=== PATIENT | male | born 1955 | race Caucasian/White ===

== ENCOUNTER 2018-05-31 11:20 | Inpatient (IN) | payer BC ==
[2018-05-31] MEDS ORDERED: NITROGLYCERIN SL TABS 0.4 MG TAB SUBLINGUAL STA (11:36)
[2018-05-31] MEDS ORDERED: ASPIRIN 81 MG PO STA (11:36)
[2018-05-31] MEDS ORDERED: DILTIAZEM DRIP BOLUS FROM BAG 1 MG SOLN IV ONE (11:50)
[2018-05-31] MEDS ORDERED: HEPARIN SODIUM,PORCINE 5,000 UNIT/ML 1 ML VIAL IV ONE ×2 (11:51→21:00)
--- NOTE | 2018-05-31 11:56 | XR ---
EXAMINATION TYPE: XR chest 2V DATE OF EXAM: 05/31/2018 COMPARISON: NONE HISTORY: Chest pain and dysrhythmia today. TECHNIQUE: Frontal and lateral views of the chest are obtained. FINDINGS: There is no focal air space opacity, pleural effusion, or pneumothorax seen. The cardiac silhouette size is within normal limits. The osseous structures are intact. IMPRESSION: No acute cardiopulmonary process.
--- NOTE | 2018-05-31 11:58 | ED ---
Chest Pain HPI - General Chief Complaint: Chest Pain Stated Complaint: Chest Pain Time Seen by Provider: 05/31/18 11:33 Source: patient, RN notes reviewed Mode of arrival: wheelchair Limitations: no limitations - History of Present Illness Initial Comments: This is a [id number] male history of NC in 2012 who has a single stent was placed at [facility] who states he had the sudden onset within the hour arriving here retrosternal chest pressure 3-4/10 severity with palpitations some sweats and shortness of breath. He's concerned this may be similar to his previous NC. He's had no recent cold or flu symptoms no cough no sign no other modifying factors he did take 81 mg aspirin this morning. MD Complaint: chest pain - Related Data Home Medications Medication Instructions Recorded Confirmed Aspirin EC [Ecotrin Low Dose] 81 mg PO DAILY 05/31/18 05/31/18 Atorvastatin [Lipitor] 40 mg PO HS 05/31/18 05/31/18 Balsalazide Disodium 2,250 mg PO TID 05/31/18 05/31/18 Bumetanide [Bumex] 1 mg PO HS 05/31/18 05/31/18 Cholecalciferol (Vitamin D3) 2,000 unit PO DAILY 05/31/18 05/31/18 [Vitamin D3] Dicyclomine [Bentyl] 10 mg PO TID 05/31/18 05/31/18 Escitalopram [Lexapro] 20 mg PO DAILY 05/31/18 05/31/18 Isosorbide Mononitrate ER [Imdur] 60 mg PO DAILY 05/31/18 05/31/18 Metoprolol Succinate [Toprol Xl] 100 mg PO HS 05/31/18 05/31/18 Nitroglycerin Sl Tabs [Nitrostat] 0.4 mg PO Q5M PRN 05/31/18 05/31/18 [place]-3 Fatty Acids/Fish Oil [Fish 1 cap PO QID 05/31/18 05/31/18 Oil 1,000 mg Softgel] Pantoprazole Sodium 40 mg PO DAILY 05/31/18 05/31/18 Ramipril 10 mg PO DAILY 05/31/18 05/31/18 Ranolazine [Ranexa] 500 mg PO BID 05/31/18 05/31/18 Allergies Allergy/AdvReac Type Severity Reaction Status Date / Time No Known Allergies Allergy Verified 05/31/18 12:08 Review of Systems ROS Statement: Those systems with pertinent positive or pertinent negative responses have been documented in the HPI. ROS Other: All systems not noted in ROS Statement are negative. EKG Findings - EKG Results: EKG: interpreted by [facility] (Atrial fibrillation with rapid ventricular response rate 136 QRS 90 QT since QTC 308/463 there is evidence of early repolarization versus ST elevation in V4 5 and 6.) Past Medical History Past Medical History: Hypertension, Myocardial Infarction ([place]) Additional Past Medical History / Comment(s): Ulcerative colitis History of Any Multi-Drug Resistant Organisms: None Reported Past Surgical History: Heart Catheterization With Stent Past Psychological History: No Psychological Hx Reported Smoking Status: Never smoker Past Alcohol Use History: None Reported Past Drug Use History: None Reported General Exam - General Exam Comments Initial Comments: This is a well-developed well-nourished awake alert oriented times 3 male Limitations: no limitations General appearance: alert, anxious Head exam: Present: atraumatic, normocephalic, normal inspection Eye exam: Present: normal appearance, PERRL, EOMI. Absent: scleral icterus, conjunctival injection, periorbital swelling ENT exam: Present: normal exam, mucous membranes moist Neck exam: Present: normal inspection. Absent: tenderness, meningismus, lymphadenopathy Respiratory exam: Present: normal lung sounds bilaterally. Absent: respiratory distress, wheezes, rales, rhonchi, stridor Cardiovascular Exam: Present: tachycardia, irregular rhythm. Absent: systolic murmur, diastolic murmur, rubs, gallop, clicks GI/Abdominal exam: Present: soft, normal bowel sounds. Absent: distended, tenderness, guarding, rebound, rigid Extremities exam: Present: normal inspection, full ROM, normal capillary refill. Absent: tenderness, pedal edema, joint swelling, calf tenderness Back exam: Present: normal inspection Neurological exam: Present: alert, oriented X3, CN II-XII intact Psychiatric exam: Present: normal affect, normal mood Skin exam: Present: warm, dry, intact, normal color. Absent: rash Course Vital Signs 05/31/18 05/31/18 05/31/18 11:25 11:46 12:10 Temperature 98.4 F Pulse Rate 73 122 H 106 H Respiratory 18 18 18 Rate Blood Pressure 169/88 115/92 126/89 O2 Sat by Pulse 97 96 96 Oximetry - Reevaluation(s) Reevaluation #1: 05/31/18 12:06 I did discuss case with Dr. Madrid attempt was made to fax the EKG copy to him he did come the emergency department see the patient. Patient will be taken the Produce Wrapper a STEMI was activated. Is not clearcut ST elevation but no old EKGs are available at this time. [facility]. Reevaluation #2: 05/31/18 12:07 Patient did get some relief with nitroglycerin and aspirin. Cardizem was ordered and started or A. fib Reevaluation #3: 05/31/18 12:14 I did discuss the findings thus far the patient has patient will be going to the Produce Wrapper. Case also with Dr. Wolfe as well as Dr. Quispe who did come the emergency department Chest Pain MDM - MDM I did review the imaging no acute findings. Patient is a 2 cleared STEMI alert he will go up to the Produce Wrapper. Critical Care Time Critical Care Time: Yes Critical Care Time: 37 minutes of critical care time which includes initial presentation with history physical and ordering of labs and x-rays. Reevaluation the patient on several occasions. Discussion with Dr. Wolfe discussion with Dr. Quispe discussion with the family. Admission orders and documentation of the above. Disposition Clinical Impression: STEMI (ST elevation myocardial infarction), Chest pain, Rapid atrial fibrillation Disposition: ADMITTED IP TO THIS HOSP Condition: Serious Referrals: Emerson Vaughan DO [Primary Care Provider] - 1-2 days
[2018-05-31] MEDS ORDERED: DILTIAZEM 50 MG in SODIUM CHLORIDE 0.9% 40 ML IV SCH (12:00)
[2018-05-31 12:05] LABS: Basophils % (A) 0 %; Eosinophils # (A) 0.1 k/uL (0-0.7); Eosinophils % (A) 1 %; HCT 45.1 % (39.0-53.0); HGB 15.4 gm/dL (13.0-17.5); Lymphocytes # (A) 1.5 k/uL (1.0-4.8); Lymphocytes % (A) 16 %; MCHC 34.2 g/dL (31.0-37.0); MCV 87.7 fL (80.0-100.0); Mean Platelet Volume 6.8; Monocytes # (A) 0.6 k/uL (0-1.0); Monocytes % (A) 7 %; Neutrophils # (A) 6.8 k/uL (1.3-7.7); Neutrophils % (A) 73 %; Platelet Count 210 k/uL (150-450); RBC 5.14 m/uL (4.30-5.90); RDW 13.4 % (11.5-15.5); WBC 9.3 k/uL (3.8-10.6)
[2018-05-31 12:17] LABS: ALT 32 U/L (21-72); AST 32 U/L (17-59); Albumin 4.1 g/dL (3.5-5.0); Alkaline Phosphatase 77 U/L (38-126); Anion Gap 7 mmol/L; Blood Urea Nitrogen 17 mg/dL (9-20); Calcium 9.2 mg/dL (8.4-10.2); Carbon Dioxide 23 mmol/L (22-30); Chloride 108 mmol/L (98-107); Glucose 106 mg/dL (74-99); Magnesium 1.8 mg/dL (1.6-2.3); Potassium 4.4 mmol/L (3.5-5.1); Sodium 138 mmol/L (137-145); Total Bilirubin 0.7 mg/dL (0.2-1.3); Total Protein 7.3 g/dL (6.3-8.2)
[2018-05-31 12:20] LABS: D-Dimer 0.75 mg/L FEU (<0.60); INR 0.9 (<1.2); Partial Thromboplastin Time 26.5 sec (22.0-30.0); Prothrombin Time 10.2 sec (9.0-12.0)
[2018-05-31] MEDS ORDERED: IV FLUID CONTINUATION 1,000 ML IV ONE (12:20)
[2018-05-31] MEDS ORDERED: SODIUM CHLORIDE 0.9% 500 ML 500 ML IV ONE (12:25)
[2018-05-31 12:27] LABS: Creatine Kinase 244 U/L (55-170)
[2018-05-31] MEDS ORDERED: MIDAZOLAM 2 MG/2 ML VIAL IV ONE (12:34)
[2018-05-31] MEDS ORDERED: LIDOCAINE 2% INJ 20 MG/ML SQ ONE (12:34)
[2018-05-31 12:40] LABS: Creatine Kinase MB 1.5 ng/mL (0.0-2.4); Troponin I <0.012 ng/mL (0.000-0.034)
[2018-05-31] MEDS ORDERED: IOPAMIDOL-370 125ML BTL INJ ONE (12:48)
[2018-05-31] MEDS ORDERED: HEPARIN SODIUM 1,000 UN/ML (10ML VL) ONE (12:56)
[2018-05-31] MEDS ORDERED: RX INFO: IV CONTRAST WAS GIVEN 1 EACH MISC MISCELLANE PRN (13:03)
[2018-05-31] MEDS ORDERED: METOPROLOL SUCCINATE (ER) 50 MG TAB.ER.24H PO SCH (13:15)
[2018-05-31] MEDS: SODIUM CHLORIDE 0.9% 1,000 ML IV SCH (13:59)
[2018-05-31] MEDS ORDERED: METOPROLOL TARTRATE 50 MG TAB ONE (15:40)
--- NOTE | 2018-05-31 16:29 | CONS ---
CONSULTATION CHIEF COMPLAINT: Chest pain. This is a 62-year-old gentleman with history of coronary artery disease, status post prior angioplasty, probably of proximal LAD, hypertension, who comes to [facility] Emergency Room with sudden onset chest pain. He describes it as a mild to moderate intensity chest pressure in the interscapular area started around 10 o'clock. He came to the ER. He had an EKG that showed new onset atrial fibrillation with subtle ST elevation in the inferolateral leads. Due to this, the patient had a STEMI alert and was taken to the slab inspector emergently. The patient's chest discomfort was improving at the time of my evaluation. He is hemodynamically stable, had fast heart rate. He has known CAD and has had prior angioplasty. He also had other episodes of chest pain and is currently taking Ranexa. PAST MEDICAL HISTORY: Significant for hypertension, coronary artery disease. MEDICATIONS: As charted. ALLERGIES: He denies any. FAMILY HISTORY: Negative for premature coronary artery disease. SOCIAL HISTORY: Negative for current smoking, EtOH abuse, or drug abuse. REVIEW OF SYSTEMS: HEENT is unremarkable. CARDIOVASCULAR: Cardiac as described above. RESPIRATORY negative. GI negative. GENITOURINARY: Negative. MUSCULOSKELETAL: Negative. ENDOCRINE: Negative. DERM: Negative. CONSTITUTIONAL: Negative. Oncological negative. Rest of the system review is not relevant. EXAM: Patient is comfortable at rest. Heart rate is around 110-120 beats per minute. Blood pressure is 130/72, respiratory rate 18. There is no jugular venous distention. Carotid upstroke is normal. There is no bruit. Chest exam reveals good air entry bilaterally. Heart exam reveals first and second heart sounds. No gallop. Irregular rhythm. No murmur. Abdomen is soft. Exam of extremities did not reveal any edema. Peripheral pulses are felt. Labs are pending at this time. EKG is as described above. ASSESSMENT: Acute ischemic syndrome. The EKG changes could represent acute inferolateral myocardial infarction or could be due to early repolarization changes. The patient was advised to undergo emergent cardiac catheterization to rule out significant CAD. He understands risks, and benefits. MMODL / IJN: [id number] /
--- NOTE | 2018-05-31 16:34 | CC ---
CARDIAC CATHETERIZATION REPORT INDICATION: Acute myocardial infarction. PROCEDURE NOTE: After obtaining informed consent, left heart catheterization and coronary angiogram were performed via the right femoral artery using standard Mickie catheters. The patient tolerated the procedure well without any obvious immediate complications. Received moderate conscious sedation. Total sedation time was 17 minutes. A femoral angiogram was performed and decision was made for manual hemostasis as the site of entry is below the bifurcation of the common femoral artery. FINDINGS: HEMODYNAMICS: Left ventricular end-diastolic pressure is 4 mm. There is no significant gradient across the aortic valve. LEFT VENTRICULOGRAM: Left ventriculogram was not performed. ANGIOGRAPHIC DATA: LEFT MAIN CORONARY ARTERY: Left main coronary artery is a normal-sized vessel and is free of stenosis. Divides into left anterior descending coronary artery and circumflex coronary artery. LEFT ANTERIOR DESCENDING CORONARY ARTERY: The proximal LAD, which was previously stented appears patent. CIRCUMFLEX CORONARY ARTERY: Circumflex coronary artery shows a 30% to 40% stenosis in the AV groove circ. RIGHT CORONARY ARTERY : Right coronary artery is a dominant vessel and shows a 40% stenosis in the mid to distal RCA. There is mild nonobstructive disease both distally and proximally in the right coronary artery. CONCLUSIONS: 1. Patent stent within the proximal LAD. 2. Noncritical disease involving right coronary artery and circumflex coronary artery. PLAN: The patient's chest discomfort is probably related to the new onset atrial fibrillation. I am going to obtain a 2D echo to evaluate LV function wall motion and rule out any pericardial effusion. We will continue IV Cardizem and if the patient does not convert spontaneously to sinus rhythm, we may anticoagulate him and consider an outpatient ALEJANDRO cardioversion. MMODL / IJN: [id number] /
[2018-05-31] MEDS ORDERED: NITROGLYCERIN SL TABS 0.4 MG TAB SUBLINGUAL PRN (19:44)
--- NOTE | 2018-05-31 19:53 | P.HPIM ---
History of Present Illness 62-year-old pleasant gentleman came in with complains of palpitations chest pressure like sensation and shortness of breath denied any orthopnea proximal dyspnea. 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 Patient did not have any new cath was threaded coronary occlusive disease patient does have history of coronary artery disease. Patient doesn't have any history of atrial fibrillation. Patient's symptoms started around 10 AM today patient was started on IV heparin IV heparin will be continued because of his atrial fibrillation. Patient does have history of hypertension. Does have history of sleep apnea denied any history of any start failure diabetes. Patient is still in A. fib but rate controlled Cardizem was subsequently discontinued patient was given a dose of Toprol-XL of 50 patient normally takes 100 we'll give another additional dose of 50 to avoid any reflux tachycardia tomorrow morning after the Cardizem effect weans off. Patient will be started back on his regular dose of the 100 Toprol-XL from tomorrow night. Review of Systems REVIEW OF SYSTEMS: CONSTITUTIONAL: No fever, no malaise, no fatigue. HEENT: No recent visual problems or hearing problems. Denied any sore throat. CARDIOVASCULAR: As mentioned in HPI PULMONARY: No shortness of breath, no cough, no hemoptysis. GASTROINTESTINAL: No diarrhea, no nausea, no vomiting, no abdominal pain. NEUROLOGICAL: No headaches, no weakness, no numbness. HEMATOLOGICAL: Denies any bleeding or petechiae. GENITOURINARY: Denies any burning micturition, frequency, or urgency. MUSCULOSKELETAL/RHEUMATOLOGICAL: Denies any joint pain, swelling, or any muscle pain. ENDOCRINE: Denies any polyuria or polydipsia. The rest of the 14-point review of systems is negative. Past Medical History Past Medical History: Hypertension, Myocardial Infarction ([place]) Additional Past Medical History / Comment(s): Ulcerative colitis History of Any Multi-Drug Resistant Organisms: None Reported Past Surgical History: Heart Catheterization With Stent Past Psychological History: No Psychological Hx Reported Smoking Status: Never smoker Past Alcohol Use History: None Reported Past Drug Use History: None Reported Medications and Allergies Home Medications Medication Instructions Recorded Confirmed Type Aspirin EC [Ecotrin Low Dose] 81 mg PO DAILY 05/31/18 05/31/18 History Atorvastatin [Lipitor] 40 mg PO HS 05/31/18 05/31/18 History Balsalazide Disodium 2,250 mg PO TID 05/31/18 05/31/18 History Bumetanide [Bumex] 1 mg PO HS 05/31/18 05/31/18 History Cholecalciferol (Vitamin D3) 2,000 unit PO DAILY 05/31/18 05/31/18 History [Vitamin D3] Dicyclomine [Bentyl] 10 mg PO TID 05/31/18 05/31/18 History Escitalopram [Lexapro] 20 mg PO DAILY 05/31/18 05/31/18 History Isosorbide Mononitrate ER [Imdur] 60 mg PO DAILY 05/31/18 05/31/18 History Metoprolol Succinate [Toprol Xl] 100 mg PO HS 05/31/18 05/31/18 History Nitroglycerin Sl Tabs [Nitrostat] 0.4 mg PO Q5M PRN 05/31/18 05/31/18 History [place]-3 Fatty Acids/Fish Oil [Fish 1 cap PO QID 05/31/18 05/31/18 History Oil 1,000 mg Softgel] Pantoprazole Sodium 40 mg PO DAILY 05/31/18 05/31/18 History Ramipril 10 mg PO DAILY 05/31/18 05/31/18 History Ranolazine [Ranexa] 500 mg PO BID 05/31/18 05/31/18 History Allergies Allergy/AdvReac Type Severity Reaction Status Date / Time No Known Allergies Allergy Verified 05/31/18 12:08 Physical Exam Vitals: Vital Signs Temp Pulse Pulse Resp BP BP Pulse Ox 05/31/18 19:08 75 18 113/58 98 05/31/18 18:15 74 18 113/59 97 05/31/18 17:15 72 18 119/71 96 05/31/18 16:15 76 18 112/65 96 05/31/18 15:15 70 18 111/66 98 05/31/18 14:45 68 18 114/73 98 05/31/18 14:15 68 18 110/65 98 05/31/18 14:00 72 18 106/59 98 05/31/18 13:45 72 18 107/64 97 05/31/18 13:30 74 18 107/61 97 01/07/19 13:15 18 100/67 97 05/31/18 12:10 106 H 18 126/89 96 05/31/18 11:46 122 H 18 115/92 96 05/31/18 11:25 98.4 F 73 18 169/88 97 Intake and Output 05/31/18 05/31/18 05/31/18 06:59 14:59 22:59 Intake Total 150 18.125 Output Total 250 550 Balance -100 -531.875 Intake: IV 150 Intake, IV Titration 18.125 Amount Diltiazem 50 mg In Sodium 18.125 Chloride 0.9% 40 ml @ 2. 5 MG/HR 2.5 mls/hr IV . Q20H JÚNIOR Rx#:[id number] Output: Urine 250 550 Other: # Voids 350 Weight 142.882 kg PHYSICAL EXAMINATION: GENERAL: The patient is alert and oriented x3, not in any acute distress. Obese HEENT: Pupils are round and equally reacting to light. EOMI. No scleral icterus. No conjunctival pallor. Normocephalic, atraumatic. No pharyngeal erythema. No thyromegaly. CARDIOVASCULAR: S1 and S2 present. No murmurs, rubs, or gallops. Irregularly irregular rhythm PULMONARY: Chest is clear to auscultation, no wheezing or crackles. ABDOMEN: Soft, nontender, nondistended, normoactive bowel sounds. No palpable organomegaly. MUSCULOSKELETAL: No joint swelling or deformity. EXTREMITIES: No cyanosis, clubbing, or pedal edema. NEUROLOGICAL: Gross neurological examination did not reveal any focal deficits. SKIN: No rashes. Results CBC & Chem 7: 05/31/18 11:40 05/31/18 11:40 Labs: Abnormal Lab Results - Last 24 Hours (Table) 05/31/18 05/31/18 05/31/18 Range/Units 11:40 11:40 11:40 D-Dimer 0.75 H (<0.60) mg/L FEU Chloride 108 H (98-107) mmol/L Glucose 106 H (74-99) mg/dL Total Creatine Kinase 244 H (55-170) U/L Assessment and Plan Plan: -Palpitations, chest pressure and shortness of breath: Probably secondary to atrial fibrillation patient underwent cardia catheterization which did not show any stent table atherosclerotic coronary vascular disease. Further management of A. fib as mentioned above patient will be resumed on heparin at 9 PM as recommended by cardiology. David Vasco2 score is 1. As patient remained in A. fib he may benefit from long-term anticoagulation aspirin will be continued his Plavix was recently discontinued. -Hypertension -Sleep apnea patient will continue his CPAP machine -Mild nonspecific elevation in d-dimer my concern is low for pulmonary embolism -History of ulcerative colitis patient is on immunotherapy which will be continued -Hyperlipidemia continue with statin.
[2018-05-31 19:55] VITALS: BMI 36.3
[2018-05-31] MEDS ORDERED: HEPARIN SODIUM,PORCINE 5,000 UNIT/ML 1 ML VIAL IV PRN (20:16)
[2018-05-31 21:33] LABS: Partial Thromboplastin Time 25.2 sec (22.0-30.0); Prothrombin Time 10.7 sec (9.0-12.0)
[2018-05-31] MEDS: RANOLAZINE 500 MG TAB.ER.12H PO SCH (21:42)
[2018-05-31] MEDS: BALSALAZIDE DISODIUM 750 MG CAPSULE PO SCH (21:42)
[2018-05-31] MEDS: ATORVASTATIN 40 MG TAB PO SCH (21:42)
[2018-05-31] MEDS: DICYCLOMINE 10 MG CAP PO SCH (21:42)
[2018-05-31] MEDS: HEPARIN SOD,PORK IN 0.45% NACL 25,000 UNIT in 0.45% NACL 1 250ML.BAG IV SCH (21:46)
[2018-05-31] MEDS ORDERED: METOPROLOL SUCCINATE (ER) 50 MG TAB.ER.24H PO ONE (23:00)
[2018-06-01 04:04] LABS: Basophils % (A) 0 %; Eosinophils # (A) 0.1 k/uL (0-0.7); Eosinophils % (A) 2 %; HCT 42.5 % (39.0-53.0); HGB 14.4 gm/dL (13.0-17.5); Lymphocytes # (A) 2.3 k/uL (1.0-4.8); Lymphocytes % (A) 34 %; MCH 30.3 pg (25.0-35.0); MCHC 33.8 g/dL (31.0-37.0); MCV 89.7 fL (80.0-100.0); Mean Platelet Volume 6.7; Monocytes # (A) 0.5 k/uL (0-1.0); Monocytes % (A) 8 %; Neutrophils # (A) 3.4 k/uL (1.3-7.7); Neutrophils % (A) 52 %; Platelet Count 167 k/uL (150-450); RBC 4.74 m/uL (4.30-5.90); RDW 13.6 % (11.5-15.5); WBC 6.6 k/uL (3.8-10.6)
[2018-06-01] MEDS: SODIUM CHLORIDE 0.9% 1,000 ML IV SCH ×3 (04:10→11:36)
[2018-06-01 04:16] LABS: Calcium 8.6 mg/dL (8.4-10.2); Potassium 4.7 mmol/L (3.5-5.1)
[2018-06-01] MEDS: BALSALAZIDE DISODIUM 750 MG CAPSULE PO SCH ×3 (06:36→17:19)
[2018-06-01] MEDS: PANTOPRAZOLE 40 MG TABLET PO SCH (06:36)
--- NOTE | 2018-06-01 07:21 | ECHOF ---
Referral Reason:cp MEASUREMENTS -------- HEIGHT: 188.0 cm WEIGHT: 142.9 kg BP: 123/89 IVSd: 1.6 cm (0.6 - 1.1) LVIDd: 4.4 cm (3.9 - 5.3) LVPWd: 1.0 cm (0.6 - 1.1) IVSs: 1.5 cm LVIDs: 3.2 cm LVPWs: 1.6 cm Ao Diam: 3.6 cm (2.0 - 3.7) AV Cusp: 2.1 cm (1.5 - 2.6) LA Diam: 3.3 cm (2.7 - 3.8) MV EXCURSION: 25.293 mm (> 18.000) MV EF SLOPE: 128 mm/s (70 - 150) EPSS: 1.2 cm MV E Pedro: 0.80 m/s MV DecT: 199 ms MV A Pedro: 0.37 m/s MV E/A Ratio: 2.16 FINDINGS -------- Sinus rhythm. This was a technically difficult study with suboptimal views. Morbid Obesity The left ventricular size is normal. There is mild concentric left ventricular hypertrophy. Overa ll left ventricular systolic function is low-normal with, an EF between 50 - 55 %. The right ventricle is normal in size. The left atrial size is normal. The right atrial size is normal. The aortic valve is trileaflet, and appears structurally normal. No aortic stenosis or regurgitation. Mild mitral annular calcification present. Mild mitral regurgitation is present. Mild tricuspid regurgitation present. There is no evidence of pulmonary hypertension. Unable to e stimate RVSP due to inadequate TR jet spectral doppler profile. The pulmonic valve was not well visualized. The aortic root size is normal. There is no pericardial effusion. CONCLUSIONS -------- 1. This was a technically difficult study with suboptimal views. 2. Morbid Obesity 3. The left ventricular size is normal. 4. There is mild concentric left ventricular hypertrophy. 5. Overall left ventricular systolic function is low-normal with, an EF between 50 - 55 %. 6. The right ventricle is normal in size. 7. The left atrial size is normal. 8. The right atrial size is normal. 9. The aortic valve is trileaflet, and appears structurally normal. No aortic stenosis or regurgitati on. 10. Mild mitral annular calcification present. 11. Mild mitral regurgitation is present. 12. Mild tricuspid regurgitation present. 13. There is no evidence of pulmonary hypertension. 14. Unable to estimate RVSP due to inadequate TR jet spectral doppler profile. 15. The pulmonic valve was not well visualized. 16. The aortic root size is normal. 17. There is no pericardial effusion. PLACEMENT INTERVIEWER: Rachel Nunez RDCS
[2018-06-01] MEDS: ESCITALOPRAM 20 MG TAB PO SCH (08:45)
[2018-06-01] MEDS: ISOSORBIDE MONONITRATE ER 60 MG TAB.ER.24H PO SCH (08:45)
[2018-06-01] MEDS: ASPIRIN 81 MG PO SCH (08:45)
[2018-06-01] MEDS: RANOLAZINE 500 MG TAB.ER.12H PO SCH ×2 (08:45→21:29)
[2018-06-01] MEDS: DICYCLOMINE 10 MG CAP PO SCH ×3 (08:45→21:29)
[2018-06-01] MEDS ORDERED: METOPROLOL SUCCINATE (ER) 100 MG TAB.ER.24H PO SCH ×2 (09:00→21:00)
--- NOTE | 2018-06-01 10:42 | P.PN ---
Subjective 62-year-old came in with atrial fibrillation and chest pressure like sensation patient underwent cardiac catheterization which did not show any difficult can' t atherosclerotic coronary occlusive disease. Patient's symptomatology is from atrial fibrillation patient remains in A. fib heart rate is still high. Patient probably will benefit from cardioversion without ALEJANDRO as patient symptomatology and A. fib onset is pleasant 24 hours from initiation of anticoagulation. She is still complaining of shortness of breath and anxiety- like symptoms. Next Constitutional: Denied any fatigue denied any fever. Cardio vascular: As mentioned in the interval history Gastrointestinal denied any nausea vomiting Pulmonary: As mentioned in HPI Neurologic denied any new focal deficits All inpatient medications were reviewed and appropriate changes in these medications as dictated in the interval history and assessment and plan. Objective - Vital Signs Vital signs: Vital Signs Temp 97.8 F 06/01/18 08:00 Pulse 87 06/01/18 08:00 Resp 16 06/01/18 08:00 BP 127/77 06/01/18 08:00 Pulse Ox 98 06/01/18 08:00 Intake & Output 05/31/18 06/01/18 06/01/18 18:59 06:59 18:59 Intake Total 168.125 593.667 Output Total 500 300 Balance -331.875 293.667 Weight 142.882 kg 146.4 kg Intake: IV 150 Intake, IV Titration 18.125 593.667 Amount Diltiazem 50 mg In Sodium 18.125 Chloride 0.9% 40 ml @ 2. 5 MG/HR 2.5 mls/hr IV . Q20H JÚNIOR Rx#:[id number] Heparin Sod,Pork in 0.45% 68.667 NaCl 25,000 unit In 0.45 % NaCl 1 250ml.bag @ 7 UNITS/KG/HR 10 mls/hr IV .Q24H JÚNIOR Rx#:[id number] Sodium Chloride 0.9% 1, 525 000 ml @ 75 mls/hr IV . [id number] JÚNIOR Rx#:[id number] Output: Urine 500 300 Other: # Voids 350 2 1 - Exam PHYSICAL EXAMINATION: GENERAL: The patient is alert and oriented x3, not in any acute distress. Obese HEENT: Pupils are round and equally reacting to light. EOMI. No scleral icterus. No conjunctival pallor. Normocephalic, atraumatic. No pharyngeal erythema. No thyromegaly. CARDIOVASCULAR: S1 and S2 present. No murmurs, rubs, or gallops. Irregularly irregular rhythm PULMONARY: Chest is clear to auscultation, no wheezing or crackles. ABDOMEN: Soft, nontender, nondistended, normoactive bowel sounds. No palpable organomegaly. MUSCULOSKELETAL: No joint swelling or deformity. EXTREMITIES: No cyanosis, clubbing, or pedal edema. NEUROLOGICAL: Gross neurological examination did not reveal any focal deficits. SKIN: No rashes. - Labs CBC & Chem 7: 06/01/18 03:41 06/01/18 03:41 Labs: Abnormal Lab Results - Last 24 Hours (Table) 05/31/18 05/31/18 05/31/18 Range/Units 11:40 11:40 11:40 APTT (22.0-30.0) sec D-Dimer 0.75 H (<0.60) mg/L FEU Chloride 108 H (98-107) mmol/L Glucose 106 H (74-99) mg/dL Total Creatine Kinase 244 H (55-170) U/L 06/01/18 06/01/18 Range/Units 03:41 03:41 APTT 31.4 H (22.0-30.0) sec D-Dimer (<0.60) mg/L FEU Chloride 111 H (98-107) mmol/L Glucose (74-99) mg/dL Total Creatine Kinase (55-170) U/L Assessment and Plan Plan: -Palpitations, chest pressure and shortness of breath: Probably secondary to atrial fibrillation patient underwent cardia catheterization which did not show any stent table atherosclerotic coronary vascular disease. probably will undergo a little cardioversion today and patient will need to continue anti- correlation as an outpatient. -Hypertension -Sleep apnea patient will continue his CPAP machine -Mild nonspecific elevation in d-dimer my concern is low for pulmonary embolism -History of ulcerative colitis patient is on immunotherapy which will be continued -Hyperlipidemia continue with statin.
--- NOTE | 2018-06-01 14:07 | P.PN ---
Subjective Progress Note Date: 06/01/18 This is a 62-year-old gentleman with history of coronary artery disease and prior angioplasty, hypertension, hyperlipidemia who presented to the hospital with symptoms of chest discomfort, his initial EKG showed atrial fibrillation, patient was taken to the cardiac catheterization lab by Dr. Quispe yesterday, cardiac catheterization revealed a patent stent within the LAD. Noncritical disease involving the RCA and circumflex artery. Patient was seen and examined this morning, continues to be in atrial fibrillation, heart rate in the 110 to 115 range. Blood pressure 127/70, 98% on room air. Blood cell count is normal , hemoglobin 14.4, platelet count 167. Sodium 138, potassium 4.7, BUN 18, creatinine 1.1. Originally, the patient was scheduled today to undergo a ALEJANDRO and cardioversion, this will be rescheduled now until tomorrow. Objective - Vital Signs Vital signs: Vital Signs Temp 97.8 F 06/01/18 08:00 Pulse 71 06/01/18 12:20 Resp 16 06/01/18 11:20 BP 126/79 06/01/18 12:20 Pulse Ox 97 06/01/18 11:20 Intake & Output 05/31/18 06/01/18 06/01/18 18:59 06:59 18:59 Intake Total 168.125 593.667 99.484 Output Total 500 300 Balance -331.875 293.667 99.484 Weight 142.882 kg 146.4 kg Intake: IV 150 Intake, IV Titration 18.125 593.667 99.484 Amount Diltiazem 50 mg In Sodium 18.125 Chloride 0.9% 40 ml @ 2. 5 MG/HR 2.5 mls/hr IV . Q20H JÚNIOR Rx#:[id number] Heparin Sod,Pork in 0.45% 68.667 99.484 NaCl 25,000 unit In 0.45 % NaCl 1 250ml.bag @ 7 UNITS/KG/HR 10 mls/hr IV .Q24H JÚNIOR Rx#:[id number] Sodium Chloride 0.9% 1, 525 000 ml @ 75 mls/hr IV . [id number] JÚNIOR Rx#:[id number] Output: Urine 500 300 Other: # Voids 350 2 1 - Exam PHYSICAL EXAMINATION: GENERAL: 62-year-old gentleman in no acute distress at the time of my examination HEENT: Head is atraumatic, normocephalic. Pupils equal, round. Sclera anicteric. Conjunctiva are clear. Mucous membranes of the mouth are moist. Neck is supple. There is no elevated jugular venous pressure.] bruit is heard. HEART EXAMINATION: Heart S1, S2 irregularly irregular. No murmur or gallop heard. CHEST EXAMINATION: Lungs are clear to auscultation and precussion. No chest wall tenderness is noted on palpation or with deep breathing. ABDOMEN: Soft, nontender. Bowel sounds are heard. No organomegaly noted. EXTREMITIES: 2+ peripheral pulses with no evidence of peripheral edema and no calf tenderness noted. Right groin is soft, no evidence of any hematoma. NEUROLOGIC patient is awake, alert and oriented ?-3. . - Labs CBC & Chem 7: 06/01/18 03:41 06/01/18 03:41 Labs: Abnormal Lab Results - Last 24 Hours (Table) 06/01/18 06/01/18 06/01/18 Range/Units 03:41 03:41 10:45 APTT 31.4 H 41.0 H (22.0-30.0) sec Chloride 111 H (98-107) mmol/L Assessment and Plan Plan: Assessment and plan #1 symptoms of chest pressure with associated shortness of breath, status post cardiac catheterization which revealed a patent LAD stent. No significant obstructive coronary artery disease #2 atrial fibrillation with rapid ventricular response, chronic #3 hypertension #4 hyperlipidemia #5 history of coronary artery disease with prior stent placement #6 sleep apnea #7 history of ulcerative colitis Plan Patient will be scheduled tomorrow to undergo transesophageal echocardiographic study and subsequent elective cardioversion. At this point in time we will continue current medications. DNP note has been reviewed, I agree with a documented findings and plan of care. Patient was seen and examined.
[2018-06-01] MEDS: ATORVASTATIN 40 MG TAB PO SCH (21:29)
[2018-06-02] MEDS: HEPARIN SOD,PORK IN 0.45% NACL 25,000 UNIT in 0.45% NACL 1 250ML.BAG IV SCH (05:42)
[2018-06-02] MEDS: SODIUM CHLORIDE 0.9% 1,000 ML IV SCH ×2 (06:34→11:52)
[2018-06-02 07:41] LABS: Calcium 8.8 mg/dL (8.4-10.2); Potassium 4.7 mmol/L (3.5-5.1)
[2018-06-02 07:52] LABS: Basophils % (A) 1 %; Eosinophils # (A) 0.1 k/uL (0-0.7); Eosinophils % (A) 3 %; HCT 44.1 % (39.0-53.0); HGB 14.7 gm/dL (13.0-17.5); Lymphocytes # (A) 1.8 k/uL (1.0-4.8); Lymphocytes % (A) 33 %; MCH 30.2 pg (25.0-35.0); MCHC 33.3 g/dL (31.0-37.0); MCV 90.4 fL (80.0-100.0); Mean Platelet Volume 7.2; Monocytes # (A) 0.4 k/uL (0-1.0); Monocytes % (A) 8 %; Neutrophils % (A) 53 %; Platelet Count 175 k/uL (150-450); RBC 4.88 m/uL (4.30-5.90); RDW 13.6 % (11.5-15.5); WBC 5.7 k/uL (3.8-10.6)
[2018-06-02] MEDS: BALSALAZIDE DISODIUM 750 MG CAPSULE PO SCH ×2 (08:11→11:51)
[2018-06-02] MEDS: PANTOPRAZOLE 40 MG TABLET PO SCH ×2 (08:11→11:49)
[2018-06-02] MEDS: DICYCLOMINE 10 MG CAP PO SCH ×2 (08:11→11:50)
--- NOTE | 2018-06-02 11:13 | P.PN ---
Subjective 62-year-old came in with atrial fibrillation and chest pressure like sensation patient underwent cardiac catheterization which did not show any difficult can' t atherosclerotic coronary occlusive disease. Patient's symptomatology is from atrial fibrillation patient remains in A. fib heart rate is still high. Patient probably will benefit from cardioversion without ALEJANDRO as patient symptomatology and A. fib onset is pleasant 24 hours from initiation of anticoagulation. She is still complaining of shortness of breath and anxiety- like symptoms. 06/02/2018 Patient's still in A. fib patient is beta janie dose is being increased Cardizem will be discontinued patient will undergo cardioversion today Constitutional: Denied any fatigue denied any fever. Cardio vascular: As mentioned in the interval history Gastrointestinal denied any nausea vomiting Pulmonary: As mentioned in HPI Neurologic denied any new focal deficits All inpatient medications were reviewed and appropriate changes in these medications as dictated in the interval history and assessment and plan. Objective - Vital Signs Vital signs: Vital Signs Temp 98.2 F 06/02/18 04:00 Pulse 82 06/02/18 04:00 Resp 17 06/02/18 04:00 BP 118/83 06/02/18 04:00 Pulse Ox 97 06/02/18 04:00 Intake & Output 06/01/18 06/02/18 06/02/18 18:59 06:59 18:59 Intake Total 539.484 380 Balance 539.484 380 Weight 145.5 kg Intake: Intake, IV Titration 99.484 140 Amount Heparin Sod,Pork in 0.45% 99.484 NaCl 25,000 unit In 0.45 % NaCl 1 250ml.bag @ 7 UNITS/KG/HR 10 mls/hr IV .Q24H JÚNIOR Rx#:[id number] Sodium Chloride 0.9% 1, 140 000 ml @ 20 mls/hr IV . Q24H JÚNIOR Rx#:[id number] Oral 440 240 Other: Voiding Method Toilet # Voids 1 2 - Exam PHYSICAL EXAMINATION: GENERAL: The patient is alert and oriented x3, not in any acute distress. Obese HEENT: Pupils are round and equally reacting to light. EOMI. No scleral icterus. No conjunctival pallor. Normocephalic, atraumatic. No pharyngeal erythema. No thyromegaly. CARDIOVASCULAR: S1 and S2 present. No murmurs, rubs, or gallops. Irregularly irregular rhythm PULMONARY: Chest is clear to auscultation, no wheezing or crackles. ABDOMEN: Soft, nontender, nondistended, normoactive bowel sounds. No palpable organomegaly. MUSCULOSKELETAL: No joint swelling or deformity. EXTREMITIES: No cyanosis, clubbing, or pedal edema. NEUROLOGICAL: Gross neurological examination did not reveal any focal deficits. SKIN: No rashes. - Labs CBC & Chem 7: 06/02/18 06:18 06/02/18 06:18 Labs: Abnormal Lab Results - Last 24 Hours (Table) 06/01/18 06/01/18 06/02/18 Range/Units 10:45 19:20 06:18 APTT 41.0 H 55.9 H (22.0-30.0) sec Chloride 110 H (98-107) mmol/L Assessment and Plan Plan: -Palpitations, chest pressure and shortness of breath: Probably secondary to atrial fibrillation patient underwent cardia catheterization which did not show any stent table atherosclerotic coronary vascular disease. patient probably will undergo a electricalcardioversion today and patient will need to continue anticoagulation as an outpatient.SHEENT remains in A. fib with rapid unclear rate increasing the dose of beta janie -Hypertension -Sleep apnea patient will continue his CPAP machine -Mild nonspecific elevation in d-dimer my concern is low for pulmonary embolism -History of ulcerative colitis patient is on immunotherapy which will be continued -Hyperlipidemia continue with statin.
[2018-06-02] MEDS ORDERED: APIXABAN 5 MG TAB PO SCH (11:15)
[2018-06-02] MEDS: ISOSORBIDE MONONITRATE ER 60 MG TAB.ER.24H PO SCH (11:49)
[2018-06-02] MEDS: ESCITALOPRAM 20 MG TAB PO SCH (11:50)
[2018-06-02] MEDS: ASPIRIN 81 MG PO SCH (11:50)
[2018-06-02] MEDS: RANOLAZINE 500 MG TAB.ER.12H PO SCH (11:50)
--- NOTE | 2018-06-02 13:43 | P.DS ---
Providers Date of admission: 05/31/18 12:26 Attending physician: Casper Wolfe Primary care physician: [facility] Hospital Course: 62-year-old came in with atrial fibrillation and chest pressure like sensation patient underwent cardiac catheterization which did not show any difficult can' t atherosclerotic coronary occlusive disease. Patient's symptomatology is from atrial fibrillation patient remains in A. fib heart rate is still high. Patient probably will benefit from cardioversion without ALEJANDRO as patient symptomatology and A. fib onset is pleasant 24 hours from initiation of anticoagulation. She is still complaining of shortness of breath and anxiety- like symptoms. 06/02/2018 patient converted to sinus rhythm did not require any cardioversion patient is cleared from cardiology perspective to be discharged patient will be discharged today on eliquis please refer to my dictation a progress note from today for further details Patient Condition at Discharge: Serious Plan - Discharge Summary Discharge Rx Participant: No New Discharge Prescriptions: Continue Aspirin EC [Ecotrin Low Dose] 81 mg PO DAILY Atorvastatin [Lipitor] 40 mg PO HS Balsalazide Disodium 2,250 mg PO TID Cholecalciferol (Vitamin D3) [Vitamin D3] 2,000 unit PO DAILY Dicyclomine [Bentyl] 10 mg PO TID Escitalopram [Lexapro] 20 mg PO DAILY Isosorbide Mononitrate ER [Imdur] 60 mg PO DAILY Metoprolol Succinate [Toprol Xl] 100 mg PO HS Nitroglycerin Sl Tabs [Nitrostat] 0.4 mg PO Q5M PRN PRN Reason: Chest Pain Trade-3 Fatty Acids/Fish Oil [Fish Oil 1,000 mg Softgel] 1 cap PO QID Pantoprazole Sodium 40 mg PO DAILY Ranolazine [Ranexa] 500 mg PO BID Discontinued Bumetanide [Bumex] 1 mg PO HS Ramipril 10 mg PO DAILY Discharge Medication List Aspirin EC [Ecotrin Low Dose] 81 mg PO DAILY 05/31/18 [History] Atorvastatin [Lipitor] 40 mg PO HS 05/31/18 [History] Balsalazide Disodium 2,250 mg PO TID 05/31/18 [History] Cholecalciferol (Vitamin D3) [Vitamin D3] 2,000 unit PO DAILY 05/31/18 [History] Dicyclomine [Bentyl] 10 mg PO TID 05/31/18 [History] Escitalopram [Lexapro] 20 mg PO DAILY 05/31/18 [History] Isosorbide Mononitrate ER [Imdur] 60 mg PO DAILY 05/31/18 [History] Metoprolol Succinate [Toprol Xl] 100 mg PO HS 05/31/18 [History] Nitroglycerin Sl Tabs [Nitrostat] 0.4 mg PO Q5M PRN 05/31/18 [History] Trade-3 Fatty Acids/Fish Oil [Fish Oil 1,000 mg Softgel] 1 cap PO QID 05/31/18 [ History] Pantoprazole Sodium 40 mg PO DAILY 05/31/18 [History] Ranolazine [Ranexa] 500 mg PO BID 05/31/18 [History] Follow up Appointment(s)/Referral(s): Emerson Vaughan DO [Primary Care Provider] - 06/08/18 10:30 am (Thursday) Patient Instructions/Handouts: *Surgery [facility] - After Heart Catheterization - [employer] Instructions, A-fib (Atrial Fibrillation) (DC), Safe Use of Anticoagulants (DC) Activity/Diet/Wound Care/Special Instructions: Eliquis prescription on chart with savings card Discharge Disposition: HOME SELF-CARE
--- NOTE | 2018-06-02 14:50 | P.PN ---
Subjective Progress Note Date: 06/02/18 This is a 62-year-old gentleman with history of coronary artery disease and prior angioplasty, hypertension, hyperlipidemia who presented to the hospital with symptoms of chest discomfort, his initial EKG showed atrial fibrillation, patient was taken to the cardiac catheterization lab by Dr. Quispe yesterday, cardiac catheterization revealed a patent stent within the LAD. Noncritical disease involving the RCA and circumflex artery. Patient was seen and examined this morning, continues to be in atrial fibrillation, heart rate in the 110 to 115 range. Blood pressure 127/70, 98% on room air. Blood cell count is normal , hemoglobin 14.4, platelet count 167. Sodium 138, potassium 4.7, BUN 18, creatinine 1.1. Originally, the patient was scheduled today to undergo a ALEJANDRO and cardioversion, this will be rescheduled now until tomorrow. 06/02/2018 Patient was scheduled today to undergo transesophageal echocardiographic study with subsequent cardioversion however he converted to normal sinus rhythm on his own. Hemodynamically stable, overall feels well. Objective - Vital Signs Vital signs: Vital Signs Temp 98.2 F 06/02/18 04:00 Pulse 82 06/02/18 04:00 Resp 17 06/02/18 04:00 BP 118/83 06/02/18 04:00 Pulse Ox 97 06/02/18 04:00 Intake & Output 06/01/18 06/02/18 06/02/18 18:59 06:59 18:59 Intake Total 539.484 380 120 Balance 539.484 380 120 Weight 145.5 kg Intake: Intake, IV Titration 99.484 140 Amount Heparin Sod,Pork in 0.45% 99.484 NaCl 25,000 unit In 0.45 % NaCl 1 250ml.bag @ 7 UNITS/KG/HR 10 mls/hr IV .Q24H JÚNIOR Rx#:[id number] Sodium Chloride 0.9% 1, 140 000 ml @ 20 mls/hr IV . Q24H JÚNIOR Rx#:[id number] Oral 440 240 120 Other: Voiding Method Toilet # Voids 1 2 - Exam PHYSICAL EXAMINATION: GENERAL: 62-year-old gentleman in no acute distress at the time of my examination HEENT: Head is atraumatic, normocephalic. Pupils equal, round. Sclera anicteric. Conjunctiva are clear. Mucous membranes of the mouth are moist. Neck is supple. There is no elevated jugular venous pressure. No carotid bruit is heard. HEART EXAMINATION: Heart S1, S2 normal . No murmur or gallop heard. CHEST EXAMINATION: Lungs are clear to auscultation and precussion. No chest wall tenderness is noted on palpation or with deep breathing. ABDOMEN: Soft, nontender. Bowel sounds are heard. No organomegaly noted. EXTREMITIES: 2+ peripheral pulses with no evidence of peripheral edema and no calf tenderness noted. Right groin is soft, no evidence of any hematoma. NEUROLOGIC patient is awake, alert and oriented 3 . . - Labs CBC & Chem 7: 06/02/18 06:18 06/02/18 06:18 Labs: Abnormal Lab Results - Last 24 Hours (Table) 06/01/18 06/02/18 Range/Units 19:20 06:18 APTT 55.9 H (22.0-30.0) sec Chloride 110 H (98-107) mmol/L Assessment and Plan Plan: Assessment and plan #1 symptoms of chest pressure with associated shortness of breath, status post cardiac catheterization which revealed a patent LAD stent. No significant obstructive coronary artery disease #2 atrial fibrillation with rapid ventricular response, chronic #3 hypertension #4 hyperlipidemia #5 history of coronary artery disease with prior stent placement #6 sleep apnea #7 history of ulcerative colitis Plan Patient converted spontaneously to normal sinus rhythm and remains in a normal sinus rhythm today. He may be able to be discharged home from cardiology 's perspective to follow-up with cardiology post discharge. DNP note has been reviewed, I agree with a documented findings and plan of care. Patient was seen and examined.
[2018-06-02 15:03] VITALS: BP 122/80; TEMP 97.5
[2018-06-02 15:34] VITALS: PULSE 75; RESP 12
== END 2018-06-02 15:38 | disposition home or self-care (01) | DRG 287 ==
LOC: EC 11:20 → 2SICU 12:26 → 3SCARD 13:31
PROVIDERS: ADMIT Internal Medicine; ATTEND Internal Medicine
PROC: B2111ZZ Fluoroscopy of Multiple Coronary Arteries using Low Osmolar Contrast (ICD-10-PCS; 2018-05-31)
PROC: 4A023N7 Measurement of Cardiac Sampling and Pressure, Left Heart, Percutaneous Approach (ICD-10-PCS; principal; 2018-05-31 12:20)
DX: I48.2 Chronic atrial fibrillation (principal); E78.5 Hyperlipidemia, unspecified; G47.30 Sleep apnea, unspecified; I10 Essential (primary) hypertension; I25.10 Atherosclerotic heart disease of native coronary artery without angina pectoris; F41.9 Anxiety disorder, unspecified; I25.2 Old myocardial infarction; R79.1 Abnormal coagulation profile; E66.9 Obesity, unspecified; Z68.37 Body mass index [BMI] 37.0-37.9, adult; Z95.5 Presence of coronary angioplasty implant and graft; Z79.82 Long term (current) use of aspirin; Z79.899 Other long term (current) drug therapy
CPT/HCPCS: 36415; 71046; 80048; 80053; 82550; 82553; 83735; 83880; 84484; 85025; 85379; 85610; 85730; 93005; 93306; 93458; 96374; 99291

== ENCOUNTER → 2021-12-12 | Outpatient (CLI) | payer OTHER ==
--- NOTE | 2021-12-12 13:06 | XR ---
EXAMINATION TYPE: XR hand complete LT, XR wrist complete LT DATE OF EXAM: 12/12/2021 1:00 PM INDICATION: Patient age:Male; 66 years old; Reason for study: [id number]; COMPARISON: None TECHNIQUE: Frontal, lateral and oblique views of the left hand and frontal lateral oblique and navicu lar views of the left wrist were obtained. FINDINGS: Normal alignment of the visualized joints. No acute osseous pathology is identified. No e vidence of soft tissue swelling. Scattered mild degeneration changes are seen at the interphalangeal joints. IMPRESSION: No acute osseous pathology.
== END | disposition home or self-care (01) ==
LOC: RADXRMAIN 12:38
PROVIDERS: ATTEND Emergency Medicine
DX: S63.502A Unspecified sprain of left wrist, initial encounter (principal); S63.602A Unspecified sprain of left thumb, initial encounter; M19.042 Primary osteoarthritis, left hand